=== PATIENT | male | born 2000 | race Caucasian/White ===

== ENCOUNTER 2020-07-11 00:01 | Emergency (ER) | payer MEDICAID ==
[~2020-07-11] VITALS: Ht 188 cm; Wt 127.0 kg
[2020-07-11] MEDS ORDERED: IBUPROFEN 600MG TABLET PO ONE (00:45)
[2020-07-11 02:37] VITALS: BP 131/79
== END 2020-07-11 02:39 | disposition home or self-care (01) ==
LOC: ER 00:01
DX: M25.562 Pain in left knee (principal)
CPT/HCPCS: 73562; 99283; L1830

== ENCOUNTER 2021-08-14 20:54 | Emergency (ER) | payer MEDICAID ==
[~2021-08-14] VITALS: Ht 188 cm; Wt 127.0 kg
[2021-08-15] MEDS ORDERED: NAPR-1176 MT
[2021-08-15] MEDS ORDERED: CYCL5TAB MT
[2021-08-15 00:42] VITALS: BP 128/78
== END 2021-08-15 00:44 | disposition home or self-care (01) ==
LOC: ER 20:54
DX: M54.50 Low back pain, unspecified (principal); Z79.899 Other long term (current) drug therapy
CPT/HCPCS: 99283